=== PATIENT | female | born 1985 | race Caucasian/White ===

== ENCOUNTER 2016-03-24 12:26 | Emergency (ER) | payer OTHER ==
[2016-03-24 12:50] VITALS: BP 136/74; PULSE 68; TEMP 97.6; BMI 33.3
--- NOTE | 2016-03-24 13:07 | PDOC ---
History of Present Illness - General Chief Complaint: Back Pain Stated Complaint: BACK PAIN Time Seen by Provider: 03/24/16 12:56 History Source: Patient Exam Limitations: No Limitations - History of Present Illness Initial Comments: 03/24/16 13:06 My Chief Complaint: right lower back pain for 2 months History of Present Illness: Patient is a 31-year-old female with no significant medical history here today reporting that she has had right sided lower thoracic and upper lumbar pain that can be reproduced with movement or palpation of area. Patient reports that she has had this pain for 3 months and is unrelieved by ibuprofen 400 mg last taken yesterday. Patient also reports she urinates frequently large amounts however patient denies any dysuria, hematuria but does have urgency. Patient denies any fever, nausea, vomiting, or abdominal tenderness. Patient had an ultrasound of her kidney right sided and Dr. Nicole Ventura office on 03/20/2016 and was told to come back on 03/27/2016 to repeat the US. I called Dr. Nicole Ventura office and spoke with her and she told me that patient needed a repeat ultrasound of right kidney areas there was a problem with a technique that was used. He reports that she came in today because of the pain in her right lower thoracic upper lumbar area. Currently is a 8 out of 10 03/24/16 13:44 03/24/16 14:20 Timing/Duration: intermittent (for 3 months ) Severity: moderate (right sided flank area) Modifying Factors: improves with: immobilization Associated Symptoms: denies: denies symptoms Past History - Past Medical History Allergies/Adverse Reactions: Allergies Allergy/AdvReac Type Severity Reaction Status Date / Time No Known Drug Allergies Allergy Verified 03/24/16 12:46 Home Medications: Ambulatory Orders Naproxen [Naprosyn -] 500 mg PO BID PRN #14 tablet MDD 2 03/24/16 Nitrofurantoin Monohyd/M-Cryst [Macrobid -] 100 mg PO BID #14 capsule MDD 2 Phenazopyridine HCl [Pyridium] 200 mg PO TID #6 tablet [facility] 2 03/24/16 Asthma: No Cancer: No Cardiac Disorders: No Diabetes: No HTN: No Seizures: No Thyroid Disease: No Other medical history: none - Immunization History Immunization Up to Date: Yes - Psycho/Social/Smoking Cessation Hx Anxiety: No Suicidal Ideation: No Smoking History: Never smoked Have you smoked in the past 12 months: No Number of Cigarettes Smoked Daily: 0 Information on smoking cessation initiated: No Hx Alcohol Use: No Drug/Substance Use Hx: No Substance Use Type: None Hx Substance Use Treatment: No Review of Systems - Review of Systems Able to Perform ROS?: Yes Constitutional: No: Symptoms Reported HEENTM: No: Symptoms Reported Respiratory: No: Symptoms reported Cardiac (ROS): No: Symptoms Reported ABD/GI: No: Symptoms Reported : No: Symptoms Reported Musculoskeletal: Yes: Back Pain (rt. lower thoracic/lumbar) Integumentary: No: Symptoms Reported Neurological: No: Symptoms reported *Physical Exam - Vital Signs Last Vital Signs Temp Pulse Resp BP Pulse Ox 97.6 F 68 18 136/74 100 03/24/16 12:47 03/24/16 12:47 03/24/16 12:47 03/24/16 12:47 03/24/16 12:47 - Physical Exam General Appearance: Yes: Appropriately Dressed Respiratory/Chest: positive: Lungs Clear, Normal Breath Sounds. negative: Chest Tender, Respiratory Distress Cardiovascular: positive: Regular Rhythm, Regular Rate, S1, S2 Gastrointestinal/Abdominal: positive: Normal Bowel Sounds, Soft. negative: Tender, Organomegaly, Increased Bowel Sounds, Distended, Guarding, Rebound, Tenderness, Hepatomegaly, Spleenomegaly Musculoskeletal: positive: Normal Inspection, CVA Tenderness (R), Other ( tenderness with palpation rt. lower thoracic, upper lumbar ). negative: CVA Tenderness, CVA Tenderness (L), Decreased Range of Motion (from waist ), Vertebral Tenderness Extremity: positive: Normal Capillary Refill, Normal Inspection, Normal Range of Motion Integumentary: positive: Normal Color Neurologic: positive: Alert, Normal Response, Motor Strength 5/5. negative: Respond to painful stimul, Responsive, Sensory Deficit ED Treatment Course - LABORATORY CBC & Chemistry Diagram: 03/24/16 13:40 Medical Decision Making - Medical Decision Making Patient is a 31-year-old female with no significant medical history here today reporting that she has had right sided lower thoracic and upper lumbar pain that can be reproduced with movement or palpation of area. Patient reports that she has had this pain for 3 months and is unrelieved by ibuprofen 400 mg last taken yesterday. Patient also reports she urinates frequently large amounts however patient denies any dysuria, hematuria but does have urgency. Patient denies any fever, nausea, vomiting, or abdominal tenderness. Patient had an ultrasound of her kidney right sided and Dr. Nicole Ventura office on 03/20/2016 and was told to come back on 03/27/2016 to repeat the US. I called Dr. Nicole Ventura office and spoke with her and she told me that patient needed a repeat ultrasound of right kidney areas there was a problem with a technique that was used. He reports that she came in today because of the pain in her right lower thoracic upper lumbar area. Currently is a 8 out of 10. R/O renal calculi UTI MS pain right lower thoracic/lumbar-pain PLAN: urinalysis BMP renal ultrasound r/o calculi urine C & S macrobid 100 mg bid for 7 days pyridium 200 mg tid naprosyn 500 mg bid prn pain toradol 60 mg IM now 03/24/16 14:20 Laboratory Tests 03/24/16 03/24/16 13:40 13:40 Urine Color Ltyellow Urine Appearance Slcloudy Urine pH 7.0 D Ur Specific [place] 1.017 Urine Protein Negative Urine Glucose (UA) Negative Urine Ketones Negative Urine Blood Negative Urine Nitrite Negative Urine Bilirubin Negative Urine Urobilinogen Negative Ur Leukocyte Esterase 2+ H D Urine RBC None Urine WBC 10 Ur Epithelial Cells Many Hyaline Casts 3 Urine HCG, Qual Negative 03/24/16 14:20 Laboratory Tests 03/24/16 03/24/16 03/24/16 13:40 13:40 13:40 Sodium 142 Potassium 3.9 Chloride 106 Carbon Dioxide 27 Anion Gap 9 BUN 11 D Creatinine 0.6 Random Glucose 92 Calcium 9.4 Ur Leukocyte Esterase 2+ H D Urine RBC None Urine WBC 10 Ur Epithelial Cells Many Hyaline Casts 3 Urine HCG, Qual Negative 03/24/16 15:04 03/24/16 15:06 03/24/16 15:08 03/24/16 15:09 03/24/16 15:12 03/24/16 15:14 03/24/16 19:36 *DC/Admit/Observation/Transfer Diagnosis at time of Disposition: Low back pain Qualifiers: Chronicity: unspecified Back pain laterality: right Sciatica presence: without sciatica Qualified Code(s): M54.5 - Low back pain Urinary tract infection Qualifiers: Urinary tract infection type: acute cystitis Hematuria presence: without hematuria Qualified Code(s): N30.00 - Acute cystitis without hematuria - Discharge Dispostion Disposition: HOME Condition at time of disposition: Stable - Prescriptions Prescriptions: Nitrofurantoin Monohyd/M-Cryst [Macrobid -] 100 mg PO BID #14 capsule MDD 2 Naproxen [Naprosyn -] 500 mg PO BID PRN #14 tablet MDD 2 PRN Reason: Pain Phenazopyridine HCl [Pyridium] 200 mg PO TID #6 tablet MDD 2 - Referrals Referrals: Nicole Ferguson MD [Primary Care Provider] - Chester Miguel MD [Staff Physician] - - Patient Instructions Additional Instructions: Avoid any lifting or strenuous activities Follow-up with Dr. Nicole Ventura next week Follow-up with orthopedist if back pain continues for further evaluation Return to emergency room if symptoms worsen Drink a lot of fluids especially cranberry juice Patient voiced understanding of discharge instructions and all questions were answered
[2016-03-24 14:03] LABS: URINE APPEARANCE SLCLOUDY; URINE BILIRUBIN NEGATIVE (NEGATIVE); URINE BLOOD NEGATIVE (NEGATIVE); URINE COLOR LTYELLOW; URINE GLUCOSE (UA) NEGATIVE (NEGATIVE); URINE KETONE NEGATIVE (NEGATIVE); URINE NITRITE NEGATIVE (NEGATIVE); URINE PROTEIN NEGATIVE (NEGATIVE); URINE UROBILINOGEN NEGATIVE E.U./dl (0.2-1.0)
[2016-03-24 14:07] LABS: URINE LEUK ESTERASE 2+ (NEGATIVE)
[2016-03-24 14:08] LABS: URINE HYALINE CAST 3 /lpf; URINE WBC 10 /hpf (3-5)
[2016-03-24 14:41] LABS: CALCIUM 9.4 mg/dL (8.5-10.1); CREATININE 0.6 mg/dL (0.55-1.02)
[2016-03-24] MEDS ORDERED: KETOROLAC TROMETHAMINE 60 MG/2 ML VIAL IM ONE (15:09)
[2016-03-24] MEDS ORDERED: KETOROLAC TROMETHAMINE 60 MG/2 ML VIAL ONE (15:16)
== END 2016-03-24 15:21 | disposition home or self-care (01) ==
LOC: JERFT 12:26
PROC: 3E0233Z Introduction of Anti-inflammatory into Muscle, Percutaneous Approach (ICD-10-PCS; principal; 2016-03-24)
DX: N30.00 Acute cystitis without hematuria (principal); M54.5 Low back pain
CPT/HCPCS: 36415; 76775-TC; 80048; 81003; 81015; 84703; 87086; 96372; 99282-25

== ENCOUNTER 2016-06-08 22:37 | Emergency (ER) | payer OTHER ==
[2016-06-08 23:00] VITALS: BP 138/84; PULSE 84; TEMP 98.1; BMI 33.3
[2016-06-08 23:08] LABS: URINE APPEARANCE CLEAR; URINE BILIRUBIN NEGATIVE (NEGATIVE); URINE BLOOD NEGATIVE (NEGATIVE); URINE COLOR LTYELLOW; URINE GLUCOSE (UA) NEGATIVE (NEGATIVE); URINE KETONE NEGATIVE (NEGATIVE); URINE NITRITE NEGATIVE (NEGATIVE); URINE PROTEIN NEGATIVE (NEGATIVE); URINE UROBILINOGEN NEGATIVE E.U./dl (0.2-1.0)
[2016-06-08 23:09] LABS: URINE LEUK ESTERASE 2+ (NEGATIVE)
[2016-06-08 23:12] LABS: URINE BACTERIA RARE /hpf (NONE SEEN); URINE MUCUS RARE; URINE RBC 1 /hpf (0-3); URINE WBC 44 /hpf (3-5)
[2016-06-09] MEDS ORDERED: METHOCARBAMOL 500 MG TABLET PO ONE
--- NOTE | 2016-06-09 | PDOC ---
History of Present Illness - General History Source: Patient Exam Limitations: No Limitations - History of Present Illness Initial Comments: 06/09/16 00:06 The patient is a 31 year old female with no significant past medical history who presents to the ED with chronic upper back pain. Patient states for the past several months she has been experiencing upper back pain. Denies trauma to the area. Denies dysuria, hematuria, urgency, and frequency. States having a renal ultrasound done about 4 months ago that revealed no acute pathology. Patient also reports occasional upper back pain when she coughs. Denies SOB or chest pain. The patient denies fever, chills, lightheadedness and diaphoresis. The patient denies abdominal pain, nausea, vomiting, and diarrhea. Allergies: NKDA Social History: No alcohol, tobacco, or drug use reported. Past Surgical History: None reported PCP: Dr. Nicole Ferguson <Holli Rocha - Last Filed: 06/09/16 00:05> - General History Source: Patient <Juliocesar Davila - Last Filed: 06/09/16 00:48> - General Chief Complaint: Chronic pain Stated Complaint: BACK PAIN Time Seen by Provider: 06/08/16 23:52 Past History <Holli Rocha - Last Filed: 06/09/16 00:05> - Past Medical History Asthma: No Cancer: No Cardiac Disorders: No Diabetes: No HTN: No Seizures: No Thyroid Disease: No - Immunization History Immunization Up to Date: Yes - Psycho/Social/Smoking Cessation Hx Anxiety: No Suicidal Ideation: No Smoking History: Never smoked Have you smoked in the past 12 months: No Number of Cigarettes Smoked Daily: 0 Hx Alcohol Use: No Drug/Substance Use Hx: No Substance Use Type: None Hx Substance Use Treatment: No <Juliocesar Davila - Last Filed: 06/09/16 00:48> - Past Medical History Allergies/Adverse Reactions: Allergies Allergy/AdvReac Type Severity Reaction Status Date / Time No Known Drug Allergies Allergy Verified 03/24/16 12:46 Home Medications: Ambulatory Orders Naproxen [Naprosyn -] 500 mg PO BID PRN #14 tablet MDD 2 03/24/16 Nitrofurantoin Monohyd/M-Cryst [Macrobid -] 100 mg PO BID #14 capsule MDD 2 Phenazopyridine HCl [Pyridium] 200 mg PO TID #6 tablet MDD 2 03/24/16 Ibuprofen 800 mg PO TID #30 tablet 06/09/16 Methocarbamol [Robaxin -] 500 mg PO TID #30 tablet 06/09/16 Review of Systems - Review of Systems Able to Perform ROS?: Yes Comments:: 06/09/16 00:06 CONSTITUTIONAL: Absent: fever, no chills, no fatigue EYES: Absent: visual changes ENT: Absent: ear pain, no sore throat CARDIOVASCULAR: Absent: chest pain, no palpitations RESPIRATORY: Absent: no SOB GI: Absent: abdominal pain, no nausea, no vomiting, no constipation, no diarrhea GENITOURINARY: Absent: dysuria, no frequency, no hematuria MUSCULOSKELETAL: +upper back pain Absent: no arthralgia, no myalgia SKIN: Absent: rash NEURO: Absent: headache <Holli Rocha - Last Filed: 06/09/16 00:05> *Physical Exam - Vital Signs Last Vital Signs Temp Pulse Resp BP Pulse Ox 98.1 F 84 16 138/84 99 06/08/16 22:49 06/08/16 22:49 06/08/16 22:49 06/08/16 22:49 06/08/16 22:49 - Physical Exam Comments: 06/09/16 00:06 GENERAL: Well-appearing, well-nourished. No apparent distress. HEENT: Normocephalic, atraumatic. PERRL, EOM intact. CARDIOVASCULAR: Normal S1, S2. Regular rate and rhythm. PULMONARY: Clear to auscultation bilaterally. ABDOMEN: Soft, non-distended, non-tender. EXTREMITIES: Normal ROM in all four extremities. No gross deformities. SKIN: Warm, dry. No rash NEUROLOGICAL: No focal neurological deficits. <Holli Rocha - Last Filed: 06/09/16 00:05> - Vital Signs Last Vital Signs Temp Pulse Resp BP Pulse Ox 98.1 F 84 16 138/84 99 06/08/16 22:49 06/08/16 22:49 06/08/16 22:49 06/08/16 22:49 06/08/16 22:49 <Juliocesar Davila - Last Filed: 06/09/16 00:48> ED Treatment Course - ADDITIONAL ORDERS Additional order review: Laboratory Results 06/08/16 22:50 Urine Color Ltyellow Urine Appearance Clear Urine pH 5.0 D Ur Specific [place] 1.020 Urine Protein Negative Urine Glucose (UA) Negative Urine Ketones Negative Urine Blood Negative Urine Nitrite Negative Urine Bilirubin Negative Urine Urobilinogen Negative Ur Leukocyte Esterase 2+ H Urine RBC 1 Urine WBC 44 Ur Epithelial Cells Moderate Urine Bacteria Rare Urine Mucus Rare Urine HCG, Qual Negative <Holli Rocha - Last Filed: 06/09/16 00:05> - ADDITIONAL ORDERS Additional order review: Laboratory Results 06/08/16 22:50 Urine Color Ltyellow Urine Appearance Clear Urine pH 5.0 D Ur Specific [place] 1.020 Urine Protein Negative Urine Glucose (UA) Negative Urine Ketones Negative Urine Blood Negative Urine Nitrite Negative Urine Bilirubin Negative Urine Urobilinogen Negative Ur Leukocyte Esterase 2+ H Urine RBC 1 Urine WBC 44 Ur Epithelial Cells Moderate Urine Bacteria Rare Urine Mucus Rare Urine HCG, Qual Negative <Juliocesar Davila - Last Filed: 06/09/16 00:48> Medical Decision Making - Medical Decision Making 06/09/16 00:47 Dr. Davila: The scribe's documentation has been prepared under my direction and personally reviewed by me in its entirery. I confirm that the note above accurately reflects all work, treatment, procedures, and medical decision making performed by me. <Juliocesar Davila - Last Filed: 06/09/16 00:48> *DC/Admit/Observation/Transfer - Attestations Scribe Attestion: 06/09/16 00:06 Documentation prepared by Holli Rocha, acting as medical underwriter for Juliocesar Davila MD <Holli Rocha - Last Filed: 06/09/16 00:05> - Discharge Dispostion Admit: No <Juliocesar Davila - Last Filed: 06/09/16 00:48> Diagnosis at time of Disposition: Back pain Qualifiers: Back pain location: thoracic back pain Chronicity: chronic Back pain laterality : right Qualified Code(s): M54.6 - Pain in thoracic spine - Discharge Dispostion Disposition: HOME Condition at time of disposition: Stable - Prescriptions Prescriptions: Ibuprofen 800 mg PO TID #30 tablet Methocarbamol [Robaxin -] 500 mg PO TID #30 tablet - Referrals Referrals: Nicole Ferguson MD [Primary Care Provider] - - Patient Instructions Printed Discharge Instructions: DI for Thoracic Back Pain, DI for Chronic Pain -- Adult Print Language: ENGLISH
[2016-06-09] MEDS ORDERED: METHOCARBAMOL 500 MG TABLET ONE (00:08)
[2016-06-09] MEDS ORDERED: IBUPROFEN 600 MG TABLET (FP) PO ONE ×2 (00:09)
== END 2016-06-09 00:59 | disposition home or self-care (01) ==
LOC: JER 22:37
DX: M54.6 Pain in thoracic spine (principal); G89.29 Other chronic pain
CPT/HCPCS: 71020-TC; 81003; 81015; 84703; 99281-25

== ENCOUNTER 2022-08-11 12:45 | Emergency (ER) | payer OTHER ==
[2022-08-11 12:53] VITALS: BP 137/64; PULSE 61; RESP 18; TEMP 98.3; BMI 37.2
[2022-08-11 14:17] LABS: BASO % 1.1 % (0-2.0); EOS % 3.7 % (0-4.5); HEMATOCRIT 42.6 % (32.4-45.2); HEMOGLOBIN 14.4 GM/dL (10.7-15.3); LYMPH % 31.2 % (8-40); MCH 30.1 pg (25.7-33.7); MCHC 33.7 g/dl (32.0-36.0); MEAN CELL VOLUME 89.4 fl (80-96); PLATELET COUNT 314 10^3/uL (134-434); RBC 4.77 M/mm3 (3.60-5.2); RDW 13.2 % (11.6-15.6); WHITE BLOOD COUNT 8.1 K/mm3 (4.0-10.0)
[2022-08-11 14:20] LABS: EPI CELLS >36 /uL (0-25.1); HYALINE CASTS 1 /uL (0-3.1); PH,URINE 5.5 (5.0-8.0); URINE APPEARANCE CLOUDY; URINE BILIRUBIN NEGATIVE (NEGATIVE); URINE COLOR YELLOW; URINE GLUCOSE (UA) NEGATIVE (NEGATIVE); URINE KETONE NEGATIVE (NEGATIVE); URINE LEUK ESTERASE 1+ (NEGATIVE); URINE NITRITE NEGATIVE (NEGATIVE); URINE PROTEIN 1+ (NEGATIVE); URINE RBC 3525 /uL (0-23.9); URINE WBC 45 /uL (0-25.8)
[2022-08-11 14:24] LABS: INR 0.99 (0.83-1.09); PROTHROMBIN TIME (PATIENT) 11.5 SEC (9.7-13.0)
[2022-08-11 14:26] LABS: HCG,QUALITATIVE URINE Positive
[2022-08-11 14:27] LABS: ACTIVATED PTT 33.6 SECONDS (25.2-36.5)
[2022-08-11 14:29] LABS: URINE BACTERIA 235 /uL (0-1359)
[2022-08-11 14:35] LABS: POTASSIUM 3.9 mmol/L (3.5-5.1)
[2022-08-11 14:38] LABS: ALBUMIN 3.8 g/dl (3.4-5.0); BLOOD UREA NITROGEN 13.1 mg/dL (7-18)
[2022-08-11 14:41] LABS: CREATININE 0.6 mg/dL (0.55-1.3)
[2022-08-11 14:42] LABS: BILIRUBIN,TOTAL 0.4 mg/dL (0.2-1); TOT PROT 7.2 g/dl (6.4-8.2)
[2022-08-11] MEDS ORDERED: CEPHALEXIN MONOHYDRATE 500 MG CAPSULE (UD) PO ONE (15:47)
[2022-08-11] MEDS ORDERED: CEPHALEXIN MONOHYDRATE 500 MG CAPSULE (UD) ONE (16:00)
== END 2022-08-11 16:16 | disposition home or self-care (01) ==
LOC: JER 12:45
DX: O03.9 Complete or unspecified spontaneous abortion without complication (principal); O23.11 Infections of bladder in pregnancy, first trimester; N30.00 Acute cystitis without hematuria; Z3A.01 Less than 8 weeks gestation of pregnancy
CPT/HCPCS: 36415; 76817-TC; 80053; 81003; 84702; 84703; 85025; 85610; 85730; 86850; 86900; 86901; 99284-25

== ENCOUNTER 2023-05-15 18:55 | Inpatient (IN) | payer OTHER ==
[2023-05-15] MEDS: BETAMET ACET/BETAMET NA PH 30 MG/5 ML VIAL IM ONE (19:48)
[2023-05-15] MEDS: ELECTROLYTE-148 SOLN 1,000 ML IV SCH (21:40)
[2023-05-15 21:46] VITALS: BMI 43.3
[2023-05-15 21:55] LABS: BASO % 0.2 % (0-2.0); HEMATOCRIT 38.6 % (32.4-45.2); HEMOGLOBIN 13.2 GM/dL (10.7-15.3); LYMPH % 10.6 % (8-40); MCH 30.7 pg (25.7-33.7); MCHC 34.2 g/dl (32.0-36.0); MEAN CELL VOLUME 89.7 fl (80-96); MEAN PLT VOLUME 8.1 fl (7.5-11.1); MONO % 7.2 % (3.8-10.2); PLATELET COUNT 283 10^3/uL (134-434); RBC 4.31 M/mm3 (3.60-5.2); RDW 14.1 % (11.6-15.6); WHITE BLOOD COUNT 16.1 K/mm3 (4.0-10.0)
[2023-05-15 22:07] LABS: INR 0.9 (0.83-1.09); PROTHROMBIN TIME (PATIENT) 10.4 SEC (9.7-13.0)
[2023-05-15 22:10] LABS: ACTIVATED PTT 24.6 SECONDS (25.2-36.5)
[2023-05-15 22:17] LABS: POTASSIUM 4.1 mmol/L (3.5-5.1)
[2023-05-15 22:19] LABS: CALCIUM 9.2 mg/dL (8.5-10.1)
[2023-05-15 22:20] LABS: BLOOD UREA NITROGEN 13.8 mg/dL (7-18)
[2023-05-15 22:23] LABS: CREATININE 0.5 mg/dL (0.55-1.3)
[2023-05-15 23:10] LABS: HIV INTERPRETATION NEGATIVE (NEGATIVE)
[2023-05-15] MEDS ORDERED: PENICILLIN G POTASSIUM 5,000,000 UNIT/250 ML BAG IVPB ONE (23:28)
[2023-05-15] MEDS: PENICILLIN G POTASSIUM 5,000,000 UNIT in SODIUM CHLORIDE 250 ML IVPB SCH (23:45)
[2023-05-16] MEDS ORDERED: BUTORPHANOL TARTRATE 2 MG/ML VIAL ONE (00:19)
[2023-05-16] MEDS: BUTORPHANOL TARTRATE 1 MG/ML VIAL IVPB ONE (00:25)
[2023-05-16] MEDS ORDERED: LIDOCAINE HCL 1% PRESERVATIVE FREE - 30ML VIAL ONE (00:35)
[2023-05-16] MEDS ORDERED: OXYTOCIN 20 UNITS in 0.9% NS 20 UNIT/1,000 ML INFUS.BAG IV ONE (00:35)
[2023-05-16] MEDS: OXYTOCIN 20 UNITS in 0.9% NS 20 UNIT/1,000 ML INFUS.BAG IV SCH (02:01)
[2023-05-16] MEDS ORDERED: MISOPROSTOL 200 MCG TABLET ONE (02:16)
[2023-05-16] MEDS: MISOPROSTOL 200 MCG TABLET PR ONE ×2 (02:20)
[2023-05-16 02:48] LABS: CORD BASE EXCESS -6.5 mmol/L (0-2); CORD HCO3 22.7 mmHg (20-29); CORD PCO2 59.3 mmHg (30-78); CORD pH 7.2 (7.14-7.44)
[2023-05-16 02:54] LABS: CORD BASE EXCESS -5.2 mmol/L (0-2); CORD HCO3 21.3 mmHg (20-29); CORD PCO2 44.8 mmHg (30-78); CORD pH 7.295 (7.14-7.44)
[2023-05-16] MEDS ORDERED: IBUPROFEN 600 MG TABLET (FP) PO ONE (03:30)
[2023-05-16] MEDS: IBUPROFEN 600 MG TABLET (FP) PO PRN (03:32)
[2023-05-16] MEDS: PENICILLIN G POTASSIUM 2,500,000 UNIT in SODIUM CHLORIDE 100 ML IVPB SCH (03:33)
[2023-05-16] MEDS: FERROUS SO4 325 MG TABLET (FP) PO SCH (11:23)
[2023-05-16] MEDS: ACETAMINOPHEN 325 MG TABLET (FP) PO PRN (18:05)
[2023-05-16 22:06] VITALS: RESP 18
[2023-05-17 07:45] LABS: BASO % 0.5 % (0-2.0); EOS % 0.1 % (0-4.5); HEMATOCRIT 34.6 % (32.4-45.2); HEMOGLOBIN 11.7 GM/dL (10.7-15.3); LYMPH % 17.5 % (8-40); MCH 30.7 pg (25.7-33.7); MCHC 33.8 g/dl (32.0-36.0); MEAN CELL VOLUME 90.8 fl (80-96); MEAN PLT VOLUME 8.1 fl (7.5-11.1); MONO % 8.5 % (3.8-10.2); NEUT % 73.4 % (42.8-82.8); PLATELET COUNT 271 10^3/uL (134-434); RBC 3.81 M/mm3 (3.60-5.2); RDW 14.4 % (11.6-15.6); WHITE BLOOD COUNT 11.9 K/mm3 (4.0-10.0)
[2023-05-17 09:39] VITALS: BP 135/62; PULSE 66; TEMP 98.2
== END 2023-05-17 13:10 | disposition home or self-care (01) | DRG 560 ==
LOC: JDEL 18:55 → JLDR 20:55 → J3W 05-16 04:53
PROVIDERS: ADMIT Obstetrics & Gynecology Obstetrics; ATTEND Obstetrics & Gynecology Obstetrics
PROC: 10E0XZZ Delivery of Products of Conception, External Approach (ICD-10-PCS; principal; 2023-05-16)
DX: O60.14X0 Preterm labor third trimester with preterm delivery third trimester, not applicable or unspecified (principal); Z3A.34 34 weeks gestation of pregnancy; Z37.0 Single live birth
CPT/HCPCS: 36415; 36600; 59025; 80048; 81003; 82803; 85025; 85610; 85730; 86780; 86850; 86900; 86901; 87389; 88307-TC; 96372

== ENCOUNTER 2023-07-11 04:13 | Day surgery (SDC) | payer OTHER ==
[2023-07-11 07:27] VITALS: BMI 37.2
[2023-07-11] MEDS ORDERED: LIDOCAINE HCL/PF 2% SDV 5ML VIAL ONE (08:18)
[2023-07-11] MEDS ORDERED: DEXAMETHASONE SOD PHOSPHATE 4 MG/1 ML VIAL ONE (08:18)
[2023-07-11] MEDS ORDERED: KETOROLAC TROMETHAMINE 30 MG/1 ML VIAL ONE (08:18)
[2023-07-11] MEDS ORDERED: ONDANSETRON 4 MG/2 ML VIAL ONE (08:18)
[2023-07-11] MEDS ORDERED: ROCURONIUM BROMIDE 50 MG/5 ML SYRINGE ONE (08:19)
[2023-07-11] MEDS ORDERED: PROPOFOL 20 ML ONE (08:22)
[2023-07-11] MEDS ORDERED: BUPIVACAINE HCL/PF 0.25% (2.5MG/ML) 10 ML VIAL ONE (08:46)
[2023-07-11] MEDS ORDERED: oxyCODONE HCL 5 MG TABLET PO PRN (08:53)
[2023-07-11] MEDS ORDERED: LACTATED RINGERS SOLUTION 1,000 ML IV SCH (09:00)
[2023-07-11] MEDS ORDERED: ACETAMINOPHEN INJECTION 100 ML IVPB ONE (09:01)
[2023-07-11] MEDS ORDERED: MIDAZOLAM HCL 2 MG/2 ML SINGLE DOSE VIAL ONE (09:05)
[2023-07-11] MEDS ORDERED: FENTANYL CITRATE/PF 50 MCG/ML VIAL ONE (09:05)
[2023-07-11] MEDS: BUPIVACAINE HCL/PF 0.25% (2.5MG/ML) 10 ML VIAL IJ ONE ×2 (09:30)
[2023-07-11] MEDS ORDERED: HYDROmorphone HCl 2 MG/ML VIAL ONE (09:35)
[2023-07-11] MEDS ORDERED: SUGAMMADEX SODIUM 200 MG/2 ML VIAL ONE (09:43)
[2023-07-11 12:34] VITALS: BP 117/61; PULSE 66; RESP 20; TEMP 97.3
== END 2023-07-11 12:45 | disposition home or self-care (01) ==
LOC: JASU-SURG 04:13
PROVIDERS: ATTEND Obstetrics & Gynecology
PROC: 0UT74ZZ Resection of Bilateral Fallopian Tubes, Percutaneous Endoscopic Approach (ICD-10-PCS; principal; 2023-07-11 09:00)
DX: Z30.2 Encounter for sterilization (principal)
CPT/HCPCS: 88305-TC; 94760; J0131